=== PATIENT | female | born 1960 | race Caucasian/White ===

== ENCOUNTER 2018-08-28 21:00 | Emergency (ER) | payer BC ==
--- NOTE | 2018-08-28 21:13 | UC ---
Abdominal Pain Female HPI - HPI Summary HPI Summary: 2 wks of intermittent abd pain focused mostly at RUQ that occasionally raidates to her back. She thinks decreasing her food intake helps the pain. Sometimes it is sharp in character. other times it is dull. reports sometimes feeling her heart pound. when questioned about abd pulsation she said sometimes but is not sure it has always been there. denies fever, dizziness, n/v, chest pain. She is concerned b/c of her hx of brca and colon ca. she sees dr. delatorre next week. - History of Current Complaint Stated Complaint: ABDOMINAL DISCOMFORT Time Seen by Provider: 08/28/18 21:04 Hx Obtained From: Patient Onset/Duration: Gradual Onset, Lasting Weeks Location: Discrete At: RUQ Radiates: Yes Radiates to: Back Character: Aching, Cramping, Dull, Sharp Aggravating Factor(s): Food Alleviating Factor(s): Nothing Allergies/Adverse Reactions: Allergies Allergy/AdvReac Type Severity Reaction Status Date / Time Sulfa (Sulfonamide Allergy Rash Verified 08/28/18 21:07 Antibiotics) Home Medications: Home Medications Bismuth Subsalicylate [Pepto-Bismol Max Strength] 525 mg PO Q12HR PRN 08/28/18 [ History Confirmed 08/28/18] Omeprazole 40 mg PO DAILY 08/28/18 [History Confirmed 08/28/18] PMH/Surg Hx/FS Hx/Imm Hx - Additional Past Medical History Additional PMH: hemachromatosis Cancer History: Colorectal Cancer, Breast Cancer - Surgical History Surgical History: Yes Surgery Procedure, Year, and Place: Lumpectomy Left breast. Colon Surgery 18 years ago. Appendectomy. Atrial Septal Defect repair - Social History Alcohol Use: Weekly Alcohol Amount: a few glasses of red wine/beer a week Substance Use Type: None Smoking Status (MU): Never Smoked Tobacco - Immunization History Most Recent Influenza Vaccination: not recently Most Recent Tetanus Shot: unknown Review of Systems All Other Systems Reviewed And Are Negative: Yes Constitutional: Positive: Negative Skin: Positive: Negative Respiratory: Negative: Shortness Of Breath Cardiovascular: Negative: Palpitations Gastrointestinal: Positive: Abdominal Pain. Negative: Vomiting, Diarrhea, Nausea, Other - denies constipation. Genitourinary: Negative: Dysuria Neurological: Negative: Weakness Physical Exam Triage Information Reviewed: Yes Appearance: Well-Appearing Vital Signs Reviewed: Yes ENT: Positive: Pharynx normal, TMs normal Neck: Positive: Supple, Nontender, No Lymphadenopathy Respiratory: Positive: Lungs clear, Other: - no pleuritic pain Cardiovascular Exam: Normal Abdomen Description: Positive: No Organomegaly, Soft. Negative: CVA Tenderness (R), CVA Tenderness (L), Distended, Guarding, Hepatomegaly, Peritoneal Signs, Pulsatile Mass, Other: - denies pain when lying down or sitting up. Neurological: Positive: Alert Skin: Negative: Rashes Abd Pain Female Course/Dx - Course Course Of Treatment: 2 wk hx of RUQ pain and evolving symptoms. There seems to be an element of anxiety given her hx of cancers but I was able to reassure her. I do think if she has any concerns about severe abd issues she should go to the ED. She does not have an acute abd today and although her BP is high today she has upcoming f /u w/ a provider next week. After abdominal exam pt. reported feeling 'itchy' inside her abdomen and a fullness. In differential: cholecystitis, colitis, diverticulitis. But her symptoms do not seem to correlate completely and often change after examining an organ system. Given her concern for return of cancer I have asked her to see Dr. Delatorre at her appt next week. She has no htn hx but today it was elevated , on exam i did not feel a pulsatile mass. We rechecked her BP which was still slightly elevated. - Differential Dx/Diagnosis Differential Diagnosis: Bowel Obstruction, Constipation, Diverticulitis, Gall Bladder Disease, Renal Colic Provider Diagnosis: Right upper quadrant pain Discharge - Sign-Out/Discharge Documenting (check all that apply): Patient Departure All imaging exams completed and their final reports reviewed: No Studies - Discharge Plan Condition: Stable Disposition: HOME Patient Education Materials: Abdominal Pain (ED) Referrals: Adele Alvarenga MD [Primary Care Provider] - Additional Instructions: Given your vague abdominal symptoms I suggest either going to the Emergency room . - Billing Disposition and Condition Condition: STABLE Disposition: Home
[2018-08-28 21:42] VITALS: BP 168/92
== END 2018-08-28 22:11 | disposition home or self-care (01) ==
LOC: UCEAST 21:00
DX: R10.11 Right upper quadrant pain (principal); Z88.2 Allergy status to sulfonamides
CPT/HCPCS: 99201; G0463

== ENCOUNTER 2019-06-05 13:52 | Emergency (ER) | payer BC ==
[2019-06-05 14:16] LABS: ABS Eosinophils 0.1 10^3/ul (0-0.6); ABS Lymphocytes 1.2 10^3/ul (1.0-4.8); ABS Monocytes 0.4 10^3/ul (0-0.8); ABS Neutrophils 3.8 10^3/ul (1.5-7.7); Eosinophil % 1.6 %; Hematocrit 38 % (35-47); Hemoglobin 13.5 g/dL (12.0-16.0); Lymphocyte % 21.9 %; Mean Corpuscular HGB Conc 36 g/dL (31-36); Mean Corpuscular Hemoglobin 36 pg (27-31); Mean Corpuscular Volume 100 fL (80-97); Mean Platelet Volume 6.9 fL (7.4-10.4); Nucleated Red Blood Cells % 0.1; Platelet Count 236 10^3/uL (150-450); Red Blood Count 3.79 10^6 /uL (3.70-4.87); Red Cell Distribution Width 12 % (10-15); White Blood Count 5.4 10^3/uL (3.5-10.8)
[2019-06-05 14:23] LABS: INR 1.07 (0.82-1.09)
[2019-06-05 14:33] LABS: Albumin 4.5 g/dL (3.2-5.2); BUN/Creatinine Ratio 11.3 (8-20); Calcium 9.6 mg/dL (8.6-10.3); EGFR African American 101.6 (>60); Globulin 2.2 g/dL (2-4); Potassium 3.3 mmol/L (3.5-5.0); Total Bilirubin 0.6 mg/dL (0.2-1.0); Total Protein 6.7 g/dL (6.4-8.9)
--- NOTE | 2019-06-05 15:55 | ED ---
HPI Chest Pain - HPI Summary HPI Summary: This pt is a 58 y/o female presenting to [facility] c/o chest pain intermittently for the past couple of weeks. Pt describes chest pain as aching and dull. She notes her chest pain is intermittent and not every day, however this week she has had chest pain every day. Pt states she notices her chest pain more in the mornings when she gets up. Pt reports on exertion patient has noticed she becomes "breathless" and lack of energy. She also notes general fatigue. Denies cough, nausea, or vomiting. Denies pain or swelling in legs. Denies any recent long travel by bus, train, or plane. Denies taking any hormones. Denies hx of blood clots. Pt has never felt these symptoms in the past. PMHx: atrial septal defect repaired with occluder device, hemochromatosis, colon CA 20 years ago, breast CA in 2009. Her last stress test was 10 years ago. Denies any FHx in immediate family of cardiac disease or [place]. Pt had a recent colonoscopy earlier this month where she had a tiny polyp and was told it was normal. Her design draftsman is Dr. Javier. Pt was in the hospital in August 2018 with problems related to her hemochromatosis. She notes she has therapeutic phlebotomy to treat her hemochromatosis, last time was about 1 month ago. Denies tobacco, drug, and alcohol use. Allergies to Sulfa. Medications reviewed. Allergies noted. - History of Current Complaint Chief Complaint: EDChestPainROMI Time Seen by Provider: 06/05/19 15:46 Hx Obtained From: Patient Onset/Duration: Started Weeks Ago, Still Present Timing: Intermittent, Lasting Weeks Current Severity: Mild Pain Intensity: 2 Pain Scale Used: 0-10 Numeric Chest Pain Location: Mid Sternal Chest Pain Radiates: No Character: Dull/Aching Aggravating Factor(s): Nothing Alleviating Factor(s): Nothing Associated Signs and Symptoms: Positive: Chest Pain, Shortness of Breath. Negative: Fever, Chills, Nausea, Cough, Vomiting - Allergy/Home Medications Allergies/Adverse Reactions: Allergies Allergy/AdvReac Type Severity Reaction Status Date / Time codeine Allergy Vomiting Verified 06/05/19 14:05 Sulfa (Sulfonamide Allergy Rash Verified 06/05/19 14:05 Antibiotics) Home Medications: Home Medications NK [No Home Medications Reported] 06/05/19 [History Confirmed 06/05/19] PMH/Surg Hx/FS Hx/Imm Hx Endocrine/Hematology History: Reports: Other Endocrine/Hematological Disorders - Hemochromatosis Denies: Hx Diabetes Cardiovascular History: Reports: Other Cardiovascular Problems/Disorders - atrial septal defect - repaired - Cancer History Cancer Type, Location and Year: Colon Cancer - 18 years ago. Lumpectomy for Left Breast Cancer - 5 years. Radiation and Chemotherapy Hx Chemotherapy: Yes Hx Radiation Therapy: Yes - Surgical History Surgical History: Yes Surgery Procedure, Year, and Place: Lumpectomy Left breast. Colon resection Surgery 18 years ago. Appendectomy. Atrial Septal Defect repair. Colonoscopy Infectious Disease History: No Infectious Disease History: Denies: History Other Infectious Disease, Traveled Outside the [place] in Last 30 Days - Family History Known Family History: Positive: Cardiac Disease, Diabetes, Other - stroke, CA Family History: No FHx of cardiac disease in immediate family. 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 Negative: Fever, Chills Positive: Chest Pain Positive: Shortness Of Breath. Negative: Cough Negative: Vomiting, Nausea Negative: Edema, Other - NEGATIVE: pain in legs All Other Systems Reviewed And Are Negative: Yes Physical Exam - Summary Physical Exam Summary: Constitutional: Well-developed, Well-nourished, Alert. (-) Distressed Skin: Warm, Dry HENT: Normocephalic; Atraumatic Eyes: Conjunctiva normal Neck: Musculoskeletal ROM normal neck. (-) JVD, (-) Stridor, (-) Tracheal deviation Cardio: Rhythm regular, rate normal, Heart sounds normal; Intact distal pulses; The pedal pulses are 2+ and symmetric. Radial pulses are 2+ and symmetric. (-) Murmur Pulmonary/Chest wall: Effort normal. (-) Respiratory distress, (-) Wheezes, (-) Rales Abd: Soft, (-) tenderness, (-) Distension, (-) Guarding, (-) Rebound Musculoskeletal: (-) Edema Lymph: (-) Cervical adenopathy Neuro: Alert, Oriented x3 Psych: Mood and affect Normal Triage Information Reviewed: Yes Vital Signs On Initial Exam: Initial Vitals Temp Pulse Resp BP Pulse Ox 97.8 F 61 16 194/109 99 06/05/19 13:56 06/05/19 13:56 06/05/19 13:56 06/05/19 13:56 06/05/19 13:56 Vital Signs Reviewed: Yes Procedures - Sedation Patient Received Moderate/Deep Sedation with Procedure: No Diagnostics - Vital Signs Vital Signs Temp Pulse Resp BP Pulse Ox 06/05/19 15:43 97.1 F 69 16 166/109 98 06/05/19 13:56 97.8 F 61 16 194/109 99 - Laboratory Lab Results: Lab Results 06/05/19 06/05/19 06/05/19 Range/Units 14:08 14:08 14:08 WBC 5.4 (3.5-10.8) 10^3/uL RBC 3.79 (3.70-4.87) 10^6 /uL Hgb 13.5 (12.0-16.0) g/dL Hct 38 (35-47) % MCV 100 H (80-97) fL MCH 36 H (27-31) pg MCHC 36 (31-36) g/dL RDW 12 (10-15) % Plt Count 236 (150-450) 10^3/uL MPV 6.9 L (7.4-10.4) fL Neut % (Auto) 69.2 % Lymph % (Auto) 21.9 % [place] % (Auto) 6.7 % Eos % (Auto) 1.6 % Baso % (Auto) 0.6 % Absolute Neuts (auto) 3.8 (1.5-7.7) 10^3/ul Absolute Lymphs (auto) 1.2 (1.0-4.8) 10^3/ul Absolute Monos (auto) 0.4 (0-0.8) 10^3/ul Absolute Eos (auto) 0.1 (0-0.6) 10^3/ul Absolute Basos (auto) 0.0 (0-0.2) 10^3/ul Absolute Nucleated RBC 0.0 10^3/ul Nucleated RBC % 0.1 INR (Anticoag Therapy) 1.07 (0.82-1.09) Sodium 138 (135-145) mmol/L Potassium 3.3 L (3.5-5.0) mmol/L Chloride 104 (101-111) mmol/L Carbon Dioxide 27 (22-32) mmol/L Anion Gap 7 (2-11) mmol/L BUN 8 (6-24) mg/dL Creatinine 0.71 (0.51-0.95) mg/dL Est GFR ( Amer) 101.6 (>60) Est GFR (Non-Af Amer) 84.0 (>60) BUN/Creatinine Ratio 11.3 (8-20) Glucose 167 H (70-100) mg/dL Calcium 9.6 (8.6-10.3) mg/dL Total Bilirubin 0.60 (0.2-1.0) mg/dL AST 18 (13-39) U/L ALT 13 (7-52) U/L Alkaline Phosphatase 82 (34-104) U/L Troponin I 0.00 (<0.03) ng/mL Total Protein 6.7 (6.4-8.9) g/dL Albumin 4.5 (3.2-5.2) g/dL Globulin 2.2 (2-4) g/dL Albumin/Globulin Ratio 2.0 (1-3) Result Diagrams: 06/05/19 14:08 06/05/19 14:08 Lab Statement: Any lab studies that have been ordered have been reviewed, and results considered in the medical decision making process. - Radiology Chest XR Radiology Interpretation Completed By: Radiologist Summary of Radiographic Findings: IMPRESSION: 1. Trace interstitial pulmonary edema suspected. 2. No focal airspace opacification. 3. Presumed atrial septal defect closure device in place. Dr. Schuster has reviewed this report. - EKG 13:57 Cardiac Rate: Bradycardia - at 58 bpm EKG Rhythm: Sinus Bradycardia Summary of EKG Findings: EKG at 1357 shows sinus bradycardia at a rate of 58 bpm. T wave inversion in V2. Biphasic T wave in V3. Flattening of T wave in V4. Re-Evaluation - Re-Evaluation First Eval Re-Evaluation Time: 17:39 Comment: Reviewed results with pt. Chest Pain Course/Dx - Course Course Of Treatment: Patient is here with a couple of weeks of progressively worsening chest pain. Patient also has exertional fatigue. Patient has no risk factors for cardiac disease outside of hemochromatosis. Patient is oral. Upon arrival. Patient EKG which showed T-wave inversion in V2 with nothing to compare to prior. Patient had serial troponins of her negative. Patient is well 0 for PE. Patient's story is not consistent with dissection. Patient had negative chest x-ray. Patient has a heart score of 3 and had an outpatient stress test arranged. - Diagnoses Provider Diagnoses: Chest pain, Fatigue Discharge ED - Sign-Out/Discharge Documenting (check all that apply): Patient Departure - Discharge home - Discharge Plan Condition: Stable Disposition: HOME Meds/Orders/Equipment: NUCLEAR CARDIAC STRESS TEST [NM] Location: None Selected Patient Education Materials: Chest Pain (ED) Referrals: Adele Alvarenga MD [Primary Care Provider] - Oneyda Orona MD [Medical Doctor] - Additional Instructions: Dr. Orona will contact you about the stress test, but call her office to make an appointment. PLEASE RETURN TO EMERGENCY DEPARTMENT FOR ANY CHEST PAIN, TROUBLE BREATHING, OR ANY OTHER CONCERNING SYMPTOMS. - Billing Disposition and Condition Condition: STABLE Disposition: Home - Attestation Statements Document Initiated by Monique: Yes Documenting Scribe: Eli Cordero Provider For Whom Monique is Documenting (Include Credential): Angel Schuster MD Scribe Attestation: Eli Bland, scribed for Angel Schuster MD on 06/05/19 at 1821. Scribe Documentation Reviewed: Yes Provider Attestation: The documentation as recorded by the Eli forman accurately reflects the service I personally performed and the decisions made by me, Angel Schuster MD Status of Scribe Document: Viewed
[2019-06-05] MEDS ORDERED: Aspirin 81 mg CHEW TAB* 81 MG TAB.CHEW PO ONE (16:01)
[2019-06-05 18:47] VITALS: BP 128/74
== END 2019-06-05 18:40 | disposition home or self-care (01) ==
LOC: ED 13:52
DX: R07.9 Chest pain, unspecified (principal); R53.83 Other fatigue; R06.02 Shortness of breath; Z85.038 Personal history of other malignant neoplasm of large intestine; Z85.3 Personal history of malignant neoplasm of breast
CPT/HCPCS: 36415; 71046; 80053; 83036; 83880; 84484; 85025; 85610; 93005; 99284; A9270-GY

== ENCOUNTER 2019-06-13 21:38 | Emergency (ER) | payer BC ==
--- NOTE | 2019-06-13 21:55 | ED ---
Dizziness - HPI Summary HPI Summary: This pt is a 58 Y/O F presenting to [facility] with a CC of dizziness that occurred while she was putting food in the fridge after eating dinner at 2099. She states that she became lightheaded and had tingling and numbness that was bilateral but more pronounced on the L side. She states that she was about to lose consciousness before her family membrane helped her sit down. She was nauseas afterwards. She denies any vomiting, visual complications, and headaches. She states that she was more fatigued this morning but states that she had a lot of visitors over the holidays. She states that she went for a walk today and was asymptomatic. She states that she was here 3 weeks ago due to chest tightness. She has a PMHx of vertigo and tried her exercises without good effect. She denies any aggravating or alleviating factors. She states that she had a pain in the center of her back on 06/11/19. She states that she has a PMHx of Hemochromatosis and vertigo. She has a FHx of CVAs. - History Of Current Complaint Chief Complaint: EDDizziness Stated Complaint: DIZZINESS PER EMS Time Seen by Provider: 06/13/19 21:45 Hx Obtained From: Patient Last Known Well Date: 06/13/191999 Onset/Duration: Still Present - since 2099 Timing: Constant Severity Initially: Moderate Severity Currently: Mild Character: Lightheaded, Dizzy Aggravating Factor(s): Nothing Alleviating Factor(s): Nothing Associated Signs And Symptoms: Positive: Negative - headache, Nausea, Other: - middle back pain on 06/11/19. Negative: Vomiting, Chest Pain, Visual Changes - Allergies/Home Medications Allergies/Adverse Reactions: Allergies Allergy/AdvReac Type Severity Reaction Status Date / Time codeine Allergy Vomiting Verified 06/05/19 14:05 Sulfa (Sulfonamide Allergy Rash Verified 06/05/19 14:05 Antibiotics) PMH/Surg Hx/FS Hx/Imm Hx Previously Healthy: Yes Endocrine/Hematology History: Reports: Other Endocrine/Hematological Disorders - Hemochromatosis Denies: Hx Diabetes Cardiovascular History: Reports: Other Cardiovascular Problems/Disorders - atrial septal defect - repaired Neurological History: Reports: Other Neuro Impairments/Disorders - vertigo - Cancer History Cancer Type, Location and Year: Colon Cancer - 18 years ago. Lumpectomy for Left Breast Cancer - 5 years. Radiation and Chemotherapy Hx Chemotherapy: Yes Hx Radiation Therapy: Yes - Surgical History Surgical History: Yes Surgery Procedure, Year, and Place: Lumpectomy Left breast. Colon resection Surgery 18 years ago. Appendectomy. Atrial Septal Defect repair. Colonoscopy - Immunization History Immunizations Up to Date: Yes Infectious Disease History: No Infectious Disease History: Denies: History Other Infectious Disease, Traveled Outside the [place] in Last 30 Days - Family History Known Family History: Positive: Cardiac Disease, Diabetes, Other - stroke, CA Family History: No FHx of cardiac disease in immediate family. - Social History Occupation: Employed Full-time Lives: With Family Alcohol Use: Weekly Alcohol Amount: a few glasses of red wine/beer a week Hx Substance Use: No Substance Use Type: Reports: None Hx Tobacco Use: No Smoking Status (MU): Never Smoked Tobacco Household Exposure: No Review of Systems Positive: Fatigue, Other - dizziness described as lightheaded Eyes: Negative - visual complications Negative: Chest Pain Positive: Nausea. Negative: Vomiting Positive: Other - middle back pain 06/11/19 Negative: Headache All Other Systems Reviewed And Are Negative: Yes Physical Exam - Summary Physical Exam Summary: Appearance: Well-appearing, Well-nourished, lying in bed comfortably Skin: Warm, dry, no obvious rash Eyes: sclera anicteric, no conjunctival pallor ENT: mucous membranes moist, pharynx appears normal Neck: Supple, nontender Respiratory: Clear to auscultation, no signs of respiratory distress Cardiovascular: Normal S1, S2. No murmurs. Normal distal pulses in tibial and radial bilaterally. Abdomen: Soft, nontender, normal active bowel sounds present Musculoskeletal: Normal, Strength/ROM Intact, Motor function in all 4 extremities is normal and symmetric. There is no rigidity or tremor noted. Neurological: A&Ox3, awake and alert, mentation is normal, speech is fluent and appropriate, Level of consciousness nml. The patient is alert and oriented. Cranial nerves are grossly intact. Gaze is conjugate and without nystagmus. Peripheral vision is intact to confrontation. There are no gross sensory abnormalities to light touch. There is no truncal or fine motor ataxia. Gait is normal. Psychiatric: affect is normal, does not appear anxious or depressed NIH: 0 Triage Information Reviewed: Yes Vital Signs On Initial Exam: Initial Vitals Temp Pulse Resp BP Pulse Ox 97.5 F 65 18 195/112 99 06/13/19 21:45 06/13/19 21:45 06/13/19 21:45 06/13/19 21:45 06/13/19 21:45 Vital Signs Reviewed: Yes Procedures - Sedation Patient Received Moderate/Deep Sedation with Procedure: No Diagnostics - Vital Signs Vital Signs Temp Pulse Resp BP Pulse Ox 06/13/19 21:45 97.5 F 65 18 195/112 99 - Laboratory Result Diagrams: 06/13/19 22:14 06/13/19 22:14 Lab Statement: Any lab studies that have been ordered have been reviewed, and results considered in the medical decision making process. - EKG 2150 Cardiac Rate: Bradycardia - 58 BPM EKG Rhythm: Sinus Bradycardia ST Segment: Normal Ectopy: None Summary of EKG Findings: Sinus Bradycardia at 58 BPM, P waves, QRS complex, and T waves are within normal limits, T waves and intervals are normal, no ischemic changes. This is a normal EKG. National Institutes Of Health - NIH Scale Level of Consciousness: Alert/Keenly Responsive Ask Patient the Month and His/Her Age: Both Correct Ask Pt to Open/Close Eyes and Airbrush Artist Technical/Release Non-Paretic Hand: Both Correctly Best Gaze (Only Horizontal Eye Movement): Normal Visual Field Testing: No Visual Loss Facial Paresis-Pt to Smile & Close Eyes or Grimace Symmetry: Normal/Symmetrical Motor Function - Right Arm: No Drift-Holds 10 Seconds Motor Function - Left Arm: No Drift-Holds 10 Seconds Motor Function - Right Leg: No Drift-Holds 10 Seconds Motor Function - Left Leg: No Drift-Holds 10 Seconds Limb Ataxia-Must be out of Proportion to Weakness Present: Absent Sensory (Use Pinprick to Test Arms/Legs/Trunk/Face): Normal Best Language (Describe Picture, Name Items): No Aphasia Dysarthria (Read Several Words): Normal Extinction and Inattention: No Abnormality Total Score: 0 Dizzy Course/Dx - Course Course Of Treatment: This pt is a 58 Y/O F presenting to [facility] with a CC of dizziness that occurred while she was putting food in the fridge after eating dinner at 2100. She states that she became lightheaded and had tingling and numbness that was bilateral but more pronounced on the L side. She states that she was about to lose consciousness before her family membrane helped her sit down. She was nauseas afterwards. She denies any vomiting, visual complications , CP, and headaches. She has a FHx of CVAs and a PMHx of vertigo and Hemochromatosis. Her PE found that she has no abnormalities. She received a NIH score of 0 and also had an extended neurological exam. EKG at 2150 shows Sinus Bradycardia at 58 BPM, P waves, QRS complex, and T waves are within normal limits, T waves and intervals are normal, no ischemic changes. This is a normal EKG. Dr. Perrin, Hospitalist, was consulted at 0023 and stated that the lab results and her story are not conclusive of major neurological deficits and states that he agrees with the discharge decision. She will be discharged with a Dx of peripheral vertigo. - Diagnoses Provider Diagnoses: Peripheral vertigo - Provider Notifications Discussed Care Of Patient With: Greta Perrin Time Discussed With Above Provider: 00:22 Instructed by Provider To: Other - Dr. Perrin, Neurologist, agreeded with the decision for discharge. Discharge ED - Sign-Out/Discharge Documenting (check all that apply): Patient Departure - discharge - Discharge Plan Condition: Good Disposition: HOME Patient Education Materials: Benign Paroxysmal Positional Vertigo (ED) Referrals: Adele Alvarenga MD [Primary Care Provider] - 2 Days - Billing Disposition and Condition Condition: GOOD Disposition: Home - Attestation Statements Document Initiated by Monique: Yes Documenting Scribe: Ho Stewart Provider For Whom Monique is Documenting (Include Credential): Reji Riley MD Scribe Attestation: Ho Bland scribed for Reji Riley MD on 06/14/19 at 0552. Scribe Documentation Reviewed: Yes Provider Attestation: The documentation as recorded by the Ho forman accurately reflects the service I personally performed and the decisions made by me, Reji Riley MD Status of Scribe Document: Viewed
[2019-06-13 22:22] LABS: ABS Eosinophils 0.2 10^3/ul (0-0.6); ABS Lymphocytes 1.1 10^3/ul (1.0-4.8); ABS Monocytes 0.4 10^3/ul (0-0.8); ABS Neutrophils 6.4 10^3/ul (1.5-7.7); Eosinophil % 2.6 %; Hematocrit 37 % (35-47); Lymphocyte % 13.1 %; Mean Corpuscular HGB Conc 35 g/dL (31-36); Mean Corpuscular Hemoglobin 35 pg (27-31); Mean Corpuscular Volume 99 fL (80-97); Platelet Count 226 10^3/uL (150-450); Red Blood Count 3.71 10^6 /uL (3.70-4.87); Red Cell Distribution Width 12 % (10-15); White Blood Count 8.1 10^3/uL (3.5-10.8)
[2019-06-13 22:38] LABS: Albumin 4.4 g/dL (3.2-5.2); BUN/Creatinine Ratio 16.7 (8-20); Calcium 9.1 mg/dL (8.6-10.3); EGFR African American 91.2 (>60); EGFR Non-African American 75.3 (>60); Globulin 2.2 g/dL (2-4); Potassium 3.5 mmol/L (3.5-5.0); Total Bilirubin 0.4 mg/dL (0.2-1.0); Total Protein 6.6 g/dL (6.4-8.9)
[2019-06-14 00:23] VITALS: BP 159/86
== END 2019-06-14 00:40 | disposition home or self-care (01) ==
LOC: ED 21:38
DX: H81.399 Other peripheral vertigo, unspecified ear (principal); R00.1 Bradycardia, unspecified; Z88.5 Allergy status to narcotic agent; Z88.2 Allergy status to sulfonamides
CPT/HCPCS: 36415; 80053; 84484; 85025; 93005; 99283

== ENCOUNTER 2020-02-01 21:09 | Observation (INO) ==
[2020-02-01] MEDS ORDERED: NS 0.9% 1000 ml BAG 1,000 ML IV ONE (22:10)
[2020-02-01 22:32] LABS: ABS Eosinophils 0.1 10^3/ul (0-0.6); ABS Lymphocytes 0.9 10^3/ul (1.0-4.8); ABS Monocytes 0.4 10^3/ul (0-0.8); ABS Neutrophils 4.8 10^3/ul (1.5-7.7); Eosinophil % 1.1 %; Hematocrit 37 % (35-47); Hemoglobin 13.2 g/dL (12.0-16.0); Lymphocyte % 14.7 %; Mean Corpuscular HGB Conc 36 g/dL (31-36); Mean Corpuscular Hemoglobin 35 pg (27-31); Mean Corpuscular Volume 99 fL (80-97); Mean Platelet Volume 7.9 fL (7.4-10.4); Platelet Count 197 10^3/uL (150-450); Red Blood Count 3.78 10^6 /uL (3.70-4.87); Red Cell Distribution Width 12 % (10-15); White Blood Count 6.1 10^3/uL (3.5-10.8)
[2020-02-01 22:46] LABS: INR 1.07 (0.82-1.09)
[2020-02-01 22:51] LABS: Albumin 4.4 g/dL (3.2-5.2); BUN/Creatinine Ratio 15.8 (8-20); Calcium 9.6 mg/dL (8.6-10.3); EGFR African American 67.4 (>60); EGFR Non-African American 55.7 (>60); Globulin 2.2 g/dL (2-4); Total Bilirubin 0.7 mg/dL (0.2-1.0); Total Protein 6.6 g/dL (6.4-8.9)
[2020-02-01 22:52] LABS: Troponin I 0.01 ng/mL (<0.03)
[2020-02-01 23:18] LABS: Potassium 3.7 mmol/L (3.5-5.0)
[2020-02-02] MEDS ORDERED: Enoxaparin 40 MG/0.4 ML SYR SUBCUT SCH (01:00)
[2020-02-02 08:14] LABS: HDL Cholesterol 82.2 mg/dL
[2020-02-02 15:39] VITALS: BP 145/83
== END 2020-02-02 16:29 | disposition home or self-care (01) ==
LOC: ED 21:09 → MEDTELE 21:09
PROVIDERS: ADMIT Internal Medicine; ATTEND Internal Medicine